=== PATIENT | female | born 1985 | race Caucasian/White ===

== ENCOUNTER 2020-01-16 20:10 | Emergency (ER) | payer OTHER ==
[~2020-01-16] VITALS: Ht 165.1 cm; Wt 149.1 kg
[2020-01-16] MEDS ORDERED: ACETAMINOPHEN 500 MG TABLET PO ONE (22:30)
[2020-01-16 23:20] VITALS: BP 138/70
[2020-01-16 23:28] LABS: COVID AG,FIA SOURCE NASOPHARYNGEAL
== END 2020-01-17 00:18 | disposition home or self-care (01) ==
LOC: EMS 20:12
DX: U07.1 COVID-19 (principal)
CPT/HCPCS: 71045; 87426; 99284; U0003

== ENCOUNTER 2022-09-20 16:09 | Emergency (ER) | payer OTHER ==
[~2022-09-20] VITALS: Ht 160 cm; Wt 86.4 kg
[2022-09-20] MEDS ORDERED: TraMADol HCL 50 MG TABLET PO ONE (17:15)
[2022-09-20] MEDS ORDERED: BACITRACIN 28 GM OINTMENT TP ONE (18:00)
[2022-09-20 18:23] VITALS: BP 155/95
== END 2022-09-20 18:29 | disposition home or self-care (01) ==
LOC: EMS 16:10
DX: S91.201A Unspecified open wound of right great toe with damage to nail, initial encounter (principal); Z98.890 Other specified postprocedural states; X58.XXXA Exposure to other specified factors, initial encounter; Y93.89 Activity, other specified; Y92.89 Other specified places as the place of occurrence of the external cause; Y99.8 Other external cause status
CPT/HCPCS: 99283

== ENCOUNTER 2023-01-20 04:47 | Emergency (ER) | payer OTHER ==
[~2023-01-20] VITALS: Ht 160 cm; Wt 81.8 kg
[2023-01-20 04:51] VITALS: TEMP 97.9
[2023-01-20] MEDS ORDERED: CEPHALEXIN MONOHYDRATE 500 MG CAPSULE PO ONE (05:15)
[2023-01-20] MEDS ORDERED: PHENAZOPYRIDINE HCL 100 MG TABLET PO ONE (05:15)
[2023-01-20] MEDS ORDERED: CEPH-558 PO (05:44)
[2023-01-20 06:30] VITALS: BP 144/76; PULSE 50; RESP 15
[2023-01-20 06:43] LABS: APPEARANCE,URINE TURBID (CLEAR); BILIRUBIN,URINE NEGATIVE (NEGATIVE); GLUCOSE, URINE (UA) NEGATIVE (NEGATIVE); KETONES,URINE NEGATIVE (NEGATIVE); LEUKOCYTE ESTERASE ,URINE LARGE (NEGATIVE); NITRATE,URINE NEGATIVE (NEGATIVE); OCCULT BLOOD,URINE LARGE (NEGATIVE); PH,URINE 6.5 (5.0-8.0); PROTEIN,URINE 300-600,SEE CONFIRM mg/dL (NEGATIVE); SPECIFIC GRAVITIY, URINE 1.031 (1.003-1.030); UROBILINOGEN,URINE <=1.0 mg/dL (<=1.0)
[2023-01-20 06:55] LABS: COLOR,URINE BROWN (YELLOW); SULFOSALICYLIC ACID,URINE 3+ (Negative)
[2023-01-20 06:56] LABS: BACTERIA,URINE Moderate /HPF (None Seen); RBC,URINE >100 /HPF (0-2); WBC,URINE 26-50 /HPF (0-5)
== END 2023-01-20 06:30 | disposition home or self-care (01) ==
LOC: EMS 04:48
DX: J06.9 Acute upper respiratory infection, unspecified (principal); Z98.890 Other specified postprocedural states
CPT/HCPCS: 81001; 81002; 84703; 87186; 99283